=== PATIENT | female | born 1985 | race Two or more races ===

== ENCOUNTER → 2020-10-25 | Outpatient (CLI) | payer OTHER ==
[~2020-10-25] MED LIST: LAMICTA PO
== END | disposition home or self-care (01) ==
LOC: PRENATAL 13:49
PROVIDERS: ATTEND Obstetrics & Gynecology Maternal & Fetal Medicine
DX: O99.891 Other specified diseases and conditions complicating pregnancy (principal); O36.80X1 Pregnancy with inconclusive fetal viability, fetus 1; O09.521 Supervision of elderly multigravida, first trimester; Z36.89 Encounter for other specified antenatal screening; Z3A.12 12 weeks gestation of pregnancy

== ENCOUNTER → 2020-12-23 | Outpatient (CLI) | payer OTHER | END | disposition home or self-care (01) | LOC: PRENATAL 08:00 | PROVIDERS: ATTEND Obstetrics & Gynecology Maternal & Fetal Medicine | DX: O35.0XX1 Maternal care for (suspected) central nervous system malformation in fetus, fetus 1 (principal); O35.3XX1 Maternal care for (suspected) damage to fetus from viral disease in mother, fetus 1; O98.512 Other viral diseases complicating pregnancy, second trimester; O99.891 Other specified diseases and conditions complicating pregnancy; O99.212 Obesity complicating pregnancy, second trimester; Z36.89 Encounter for other specified antenatal screening; Z3A.20 20 weeks gestation of pregnancy ==

== ENCOUNTER → 2021-01-20 | Outpatient (CLI) | payer OTHER | END | disposition home or self-care (01) | LOC: PRENATAL 14:00 | PROVIDERS: ATTEND Obstetrics & Gynecology Maternal & Fetal Medicine | DX: O26.842 Uterine size-date discrepancy, second trimester (principal); O99.891 Other specified diseases and conditions complicating pregnancy; O09.522 Supervision of elderly multigravida, second trimester; O99.212 Obesity complicating pregnancy, second trimester; Z36.89 Encounter for other specified antenatal screening; Z3A.23 23 weeks gestation of pregnancy ==

== ENCOUNTER → 2021-03-02 | Outpatient (CLI) | payer OTHER | END | disposition home or self-care (01) | LOC: PRENATAL 13:30 | PROVIDERS: ATTEND Obstetrics & Gynecology Maternal & Fetal Medicine | DX: O26.843 Uterine size-date discrepancy, third trimester (principal); O99.891 Other specified diseases and conditions complicating pregnancy; O99.213 Obesity complicating pregnancy, third trimester; O09.523 Supervision of elderly multigravida, third trimester; Z36.89 Encounter for other specified antenatal screening; Z3A.29 29 weeks gestation of pregnancy ==

== ENCOUNTER → 2021-04-14 | Outpatient (CLI) | payer OTHER | END | disposition home or self-care (01) | LOC: PRENATAL 13:00 | PROVIDERS: ATTEND Obstetrics & Gynecology Maternal & Fetal Medicine | DX: O26.843 Uterine size-date discrepancy, third trimester (principal); O09.513 Supervision of elderly primigravida, third trimester; O99.891 Other specified diseases and conditions complicating pregnancy; O99.213 Obesity complicating pregnancy, third trimester; O24.410 Gestational diabetes mellitus in pregnancy, diet controlled; Z36.89 Encounter for other specified antenatal screening; Z3A.35 35 weeks gestation of pregnancy ==

== ENCOUNTER 2021-05-09 10:45 | Inpatient (IN) | payer OTHER ==
[~2021-05-09] VITALS: Ht 165.1 cm; Wt 116.1 kg
[2021-05-09] MEDS ORDERED: PROTONIX20 MG PO (12:39)
== END 2021-05-11 17:28 | disposition home or self-care (01) | DRG 807 ==
LOC: LDR 10:45 → SURG-SUITE 22:34 → SURH 05-11 13:36 → SURG-SUITE 05-11 17:28
PROVIDERS: ADMIT Student in an Organized Health Care Education/Training Program; ATTEND Student in an Organized Health Care Education/Training Program
PROC: 10E0XZZ Delivery of Products of Conception, External Approach (ICD-10-PCS; principal; 2021-05-09)
PROC: 0KQM0ZZ Repair Perineum Muscle, Open Approach (ICD-10-PCS; 2021-05-09)
PROC: 10907ZC Drainage of Amniotic Fluid, Therapeutic from Products of Conception, Via Natural or Artificial Opening (ICD-10-PCS; 2021-05-09)
PROC: 3E033VJ Introduction of Other Hormone into Peripheral Vein, Percutaneous Approach (ICD-10-PCS; 2021-05-09)
PROC: 3E0P7VZ Introduction of Hormone into Female Reproductive, Via Natural or Artificial Opening (ICD-10-PCS; 2021-05-09)
PROC: 4A1HXFZ Monitoring of Products of Conception, Cardiac Rhythm, External Approach (ICD-10-PCS; 2021-05-09)
DX: O41.03X0 Oligohydramnios, third trimester, not applicable or unspecified (principal); Z37.0 Single live birth; O70.1 Second degree perineal laceration during delivery; O24.429 Gestational diabetes mellitus in childbirth, unspecified control; O90.81 Anemia of the puerperium; D64.9 Anemia, unspecified; O26.893 Other specified pregnancy related conditions, third trimester; Z67.41 Type O blood, Rh negative; Z3A.39 39 weeks gestation of pregnancy; Z20.822 Contact with and (suspected) exposure to COVID-19

== ENCOUNTER 2021-06-01 16:34 | Inpatient (IN) | payer OTHER ==
[~2021-06-01] VITALS: Ht 165.1 cm; Wt 103.0 kg
[~2021-06-01 16:34] MED LIST changes: +PROTONIX20 MG PO
[2021-06-03] MEDS ORDERED: CEPHALEXIN500 MG PO (13:31)
[2021-06-03] MEDS ORDERED: CLEOCIN PH900 MG/6 M PO (13:32)
== END 2021-06-03 16:06 | disposition home or self-care (01) | DRG 776 ==
LOC: OB/GYN 16:34
PROVIDERS: ADMIT Student in an Organized Health Care Education/Training Program; ATTEND Student in an Organized Health Care Education/Training Program
PROC: 30233N1 Transfusion of Nonautologous Red Blood Cells into Peripheral Vein, Percutaneous Approach (ICD-10-PCS; principal; 2021-06-02)
DX: O99.03 Anemia complicating the puerperium (principal); D64.9 Anemia, unspecified; O86.20 Urinary tract infection following delivery, unspecified

== ENCOUNTER 2023-12-18 12:49 | Outpatient (CLI) | payer OTHER ==
[~2023-12-18 12:49] MED LIST changes: +CEPHALEXIN500 MG PO; +CLEOCIN PH900 MG/6 M PO
== END 2023-12-18 12:51 | disposition home or self-care (01) ==
LOC: PRENATAL 12:49
PROVIDERS: ATTEND Obstetrics & Gynecology Maternal & Fetal Medicine
DX: O36.80X0 Pregnancy with inconclusive fetal viability, not applicable or unspecified (principal); Z36.82 Encounter for antenatal screening for nuchal translucency; O09.529 Supervision of elderly multigravida, unspecified trimester; O99.891 Other specified diseases and conditions complicating pregnancy; Z3A.12 12 weeks gestation of pregnancy

== ENCOUNTER 2024-01-29 18:22 | Emergency (ER) | payer OTHER ==
[~2024-01-29] VITALS: Ht 165.1 cm; Wt 117.0 kg
[2024-01-29] MEDS ORDERED: HYOSCYAMINE SULFATE 0.125 MG TAB.SUBL SL ONE (19:15)
[2024-01-29] MEDS ORDERED: 0.9 % SODIUM CHLORIDE 1,000 ML IV SCH (19:15)
[2024-01-29 19:35] LABS: HEMATOCRIT 36.5 % (36.0-45.00); HEMOGLOBIN 11.8 g/dL (12.0-15.00); MEAN CORPUSCULAR HGB CONC 32.5 g/dl (32.0-36.0); PLATELET COUNT 253 K/uL (150-450); RED BLOOD COUNT 4.56 M/uL (4.00-6.00); RED CELL DISTRIBUTION WIDTH 14.8 % (11.5-14.5)
[2024-01-29 20:15] LABS: ALBUMIN 2.9 gm/dL (3.4-5.0); BILIRUBIN TOTAL 0.2 mg/dL (0.3-1.2); CALCIUM 8.5 mg/dL (8.5-10.1); CREATININE SERUM 0.56 mg/dL (0.55-1.02); GFR 119.9; GLOBULINA 4.1 G/DL (2.4-3.5); POTASSIUM 3.25 mEq/L (3.5-5.1)
[2024-01-29 20:16] LABS: PH,URINE 6.5 (5.0-8.0); URINE APPEARANCE Cloudy; URINE BILIRRUBIN Negative (NEGATIVE); URINE BLOOD Negative; URINE COLOR Yellow; URINE GLUCOSE Negative (NEGATIVE); URINE LEUKOCYTE Negative; URINE NITRATE Negative; URINE PROTEIN Negative (NEGATIVE)
[2024-01-29 20:19] LABS: URINE EPITHELIAL CELLS 15.4 uL (0.0-38.8); URINE RBC 9.7 uL (0.0-20.8); URINE WBC 41.8 uL (0.0-23.2)
== END 2024-01-29 22:23 | disposition home or self-care (01) ==
LOC: ER 18:22
PROVIDERS: Emergency Medicine
DX: O23.42 Unspecified infection of urinary tract in pregnancy, second trimester (principal); N39.0 Urinary tract infection, site not specified; O99.612 Diseases of the digestive system complicating pregnancy, second trimester; K52.9 Noninfective gastroenteritis and colitis, unspecified; K92.89 Other specified diseases of the digestive system; Z3A.18 18 weeks gestation of pregnancy; Z88.6 Allergy status to analgesic agent; Z91.012 Allergy to eggs; Z91.013 Allergy to seafood

== ENCOUNTER 2024-02-11 11:06 | Outpatient (CLI) | payer OTHER | END 2024-02-11 11:08 | disposition home or self-care (01) | LOC: PRENATAL 11:06 | PROVIDERS: ATTEND Obstetrics & Gynecology Maternal & Fetal Medicine | DX: O35.3XX0 Maternal care for (suspected) damage to fetus from viral disease in mother, not applicable or unspecified (principal); O44.00 Complete placenta previa NOS or without hemorrhage, unspecified trimester; O09.529 Supervision of elderly multigravida, unspecified trimester; O99.891 Other specified diseases and conditions complicating pregnancy; O34.10 Maternal care for benign tumor of corpus uteri, unspecified trimester; Z3A.20 20 weeks gestation of pregnancy ==

== ENCOUNTER 2024-05-19 13:36 | Outpatient (CLI) | payer OTHER | END 2024-05-19 13:37 | disposition home or self-care (01) | LOC: PRENATAL 13:36 | PROVIDERS: ATTEND Obstetrics & Gynecology Maternal & Fetal Medicine | DX: O26.843 Uterine size-date discrepancy, third trimester (principal); O09.523 Supervision of elderly multigravida, third trimester; O99.891 Other specified diseases and conditions complicating pregnancy; O34.13 Maternal care for benign tumor of corpus uteri, third trimester; Z3A.34 34 weeks gestation of pregnancy ==

== ENCOUNTER 2024-06-17 13:15 | Inpatient (IN) | payer OTHER ==
[~2024-06-17] VITALS: Ht 165.1 cm; Wt 128.4 kg
[2024-06-17 16:09] LABS: HEMATOCRIT 31.2 % (36.0-45.00); HEMOGLOBIN 9.9 g/dL (12.0-15.00); MEAN CELL VOLUME 74.3 fL (80.00-100.00); MEAN CORPUSCULAR HEMOGLOBIN 23.6 pg (27.00-32.0); MEAN CORPUSCULAR HGB CONC 31.8 g/dl (32.0-36.0); PLATELET COUNT 225 K/uL (150-450); RED BLOOD COUNT 4.19 M/uL (4.00-6.00); RED CELL DISTRIBUTION WIDTH 16.4 % (11.5-14.5)
[2024-06-17 16:25] LABS: INR 0.94; PARTIAL THROMBOPLASTIN TIME 24.8 SECONDS (22.0-34.0); PROTHROMBIN TIME 10.3 SECONDS (9.0-11.5)
[2024-06-17 16:34] LABS: ALBUMIN 2.5 gm/dL (3.4-5.0); BILIRUBIN TOTAL 0.23 mg/dL (0.3-1.2); CALCIUM 8.9 mg/dL (8.5-10.1); CREATININE SERUM 0.55 mg/dL (0.55-1.02); GFR 122.42; GLOBULINA 3.9 G/DL (2.4-3.5); POTASSIUM 4.64 mEq/L (3.5-5.1); TOTAL PROTEIN 6.4 gm/dL (6.4-8.2)
[2024-06-23] MEDS ORDERED: RINGERS SOLUTION,LACTATED 1,000 ML IV SCH (06:45)
[2024-06-23 07:08] LABS: HEMATOCRIT 32.2 % (36.0-45.00); HEMOGLOBIN 10.2 g/dL (12.0-15.00); MEAN CELL VOLUME 72.1 fL (80.00-100.00); MEAN CORPUSCULAR HEMOGLOBIN 22.8 pg (27.00-32.0); MEAN CORPUSCULAR HGB CONC 31.7 g/dl (32.0-36.0); PLATELET COUNT 269 K/uL (150-450); RED BLOOD COUNT 4.46 M/uL (4.00-6.00); RED CELL DISTRIBUTION WIDTH 16.6 % (11.5-14.5)
[2024-06-23 07:24] LABS: INR 0.94; PARTIAL THROMBOPLASTIN TIME 25.6 SECONDS (22.0-34.0); PROTHROMBIN TIME 10.3 SECONDS (9.0-11.5)
[2024-06-23] MEDS ORDERED: MISOPROSTOL 50 MCG TABLET VAG NR (07:45)
[2024-06-23] MEDS ORDERED: OXYTOCIN 500 ML IV SCH (12:00)
[2024-06-23] MEDS ORDERED: ERYTHROMYCIN BASE 1 GM TUBE OP ONE ×2 (13:23→17:00)
[2024-06-23] MEDS ORDERED: OXYTOCIN 20 UNITS/1000ML RL PIGGYBAG IV ONE (13:23)
[2024-06-23] MEDS ORDERED: CHLORHEXIDINE GLUCONATE 120 ML BOTTLE TOP ONE ×2 (13:23→17:00)
[2024-06-23] MEDS ORDERED: LIDOCAINE HCL 1% 10ML VIAL ONE (13:24)
[2024-06-23] MEDS ORDERED: AMPICILLIN SODIUM 2,000 MG VIAL IM ONE (18:15)
[2024-06-23] MEDS ORDERED: OXYTOCIN 1,000 ML IV SCH (18:15)
[2024-06-23] MEDS ORDERED: ERYTHROMYCIN BASE 1 GM TUBE OP SCH (18:15)
[2024-06-23] MEDS ORDERED: FF) RHO(D) IMMUNE GLOBULIN (POM) IM SCH (18:15)
[2024-06-23] MEDS ORDERED: CHLORHEXIDINE GLUCONATE 120 ML BOTTLE TOP SCH (18:15)
[2024-06-23] MEDS ORDERED: METRONIDAZOLE/SODIUM CHLORIDE 500 MG/100 ML PIGGYBACK IV ONE (18:15)
[2024-06-23] MEDS ORDERED: AMPICILLIN SODIUM 2,000 MG VIAL IV NR (19:30)
[2024-06-24 06:52] LABS: HEMATOCRIT 29.1 % (36.0-45.00); HEMOGLOBIN 9.5 g/dL (12.0-15.00); MEAN CELL VOLUME 72.2 fL (80.00-100.00); MEAN CORPUSCULAR HEMOGLOBIN 23.5 pg (27.00-32.0); MEAN CORPUSCULAR HGB CONC 32.5 g/dl (32.0-36.0); PLATELET COUNT 219 K/uL (150-450); RED BLOOD COUNT 4.03 M/uL (4.00-6.00); RED CELL DISTRIBUTION WIDTH 16.8 % (11.5-14.5)
[2024-06-24] MEDS ORDERED: PNV,CALCIUM 72/IRON/FOLIC ACID 1 TAB TABLET PO SCH (09:00)
[2024-06-24] MEDS ORDERED: ACETAMINOPHEN 500 MG GEL..CAP PO PRN (09:15)
== END 2024-06-25 11:17 | disposition home or self-care (01) | DRG 807 ==
LOC: LDR 06-23 05:56 → OB/GYN 06-23 05:56 → LDR 06-28 13:15
PROVIDERS: ADMIT Obstetrics & Gynecology; ATTEND Obstetrics & Gynecology
PROC: 10E0XZZ Delivery of Products of Conception, External Approach (ICD-10-PCS; principal; 2024-06-23)
PROC: 0KQM0ZZ Repair Perineum Muscle, Open Approach (ICD-10-PCS; 2024-06-23)
PROC: 4A1HXCZ Monitoring of Products of Conception, Cardiac Rate, External Approach (ICD-10-PCS; 2024-06-23)
PROC: 3E033VJ Introduction of Other Hormone into Peripheral Vein, Percutaneous Approach (ICD-10-PCS; 2024-06-23)
PROC: 3E0P7VZ Introduction of Hormone into Female Reproductive, Via Natural or Artificial Opening (ICD-10-PCS; 2024-06-23)
DX: O70.1 Second degree perineal laceration during delivery (principal); Z37.0 Single live birth; Z3A.39 39 weeks gestation of pregnancy; Z20.822 Contact with and (suspected) exposure to COVID-19